=== PATIENT | male | born 1955 | race Caucasian/White ===

== ENCOUNTER 2019-11-29 10:09 | Emergency (ER) | payer OTHER, MEDICAID ==
[~2019-11-29] VITALS: Ht 182.8 cm; Wt 77.1 kg
[~2019-11-29 10:09] MED LIST: ACTOS15 MG PO; AMARYL1 M1 PO; CIPRO500 MG PO; CYCLOBENZAPRINE10 MG PO; DAYPRO600 M1 PO; Diabeta,Micron2.5 MG PO; FLEXERIL10 MG PO; FLOMAX0.4 MG PO; GLUCOPHAGE1000 MG; GLUCOPHAGE1000 MG PO; HYDROCODONE BIT1 T11 PO; JANUVIA; KEFLEX500 MG PO; LISINOPRIL2.5 MG PO; Motrin,Rufen800 MG PO; NEXIUM20 MG PO; NEXIUM40 MG PO; PRILOSEC20 MG PO; SKELAXIN800 MG PO; VICO75300 PO; VICODIN 5/500 505 MG PO; VICODIN1 TAB PO; VITAMIN D50000 I3 PO; ZESTRIL,PRINIVI10 MG PO; ZOFRAN ODT8 MG PO
[2019-11-29 11:09] LABS: BASO # 0.1 10*3/uL (0.0-0.1); BASO % 0.7 % (0.0-1.0); EOS # 0.1 10*3/uL (0.0-0.4); HEMATOCRIT 43.9 % (42.0-52.0); LYMPH # 1.8 10*3/uL (1.3-4.4); LYMPH % 21.1 % (27.0-41.0); MEAN CORPUSCULAR HGB 33.7 pg (27.0-31.0); MEAN CORPUSCULAR HGB CONC 34.4 g/dl (33.0-37.0); MEAN PLATELET VOLUME 10.2 fl (9.6-12.3); MONO # 0.8 10*3/uL (0.1-1.0); MONO % 9.4 % (3.0-9.0); NEUT # 5.6 10*3/uL (2.3-7.9); NEUT % 67.7 % (47.0-73.0); PLATELET COUNT AUTOMATED 205 10*3/uL (130-400); RED BLOOD COUNT 4.48 10*6/uL (4.50-5.90); RED CELL DISTRI WIDTH 11.4 % (0-14.5); WHITE BLOOD COUNT 8.3 10*3/uL (4.8-10.8)
[2019-11-29 11:25] LABS: ALBUMIN 4.1 gm/dl (3.1-4.5); ALKALINE PHOSPHATASE 100 U/L (45-117); BUN 11 mg/dl (7-24); CHLORIDE 103 mmol/L (98-107); CREATININE 0.82 mg/dL (0.70-1.30); LIPASE 206 U/L (73-393); POTASSIUM 3.9 mmol/L (3.5-5.1); SGOT/AST 18 IU/L (3-35); SGPT/ALT 30 U/L (12-78); SODIUM 136 mmol/L (136-145); TOTAL PROTEIN 7.4 gm/dL (6.4-8.2)
[2019-11-29 11:29] LABS: BILIRUBIN NEGATIVE (NEGATIVE); BLOOD TRACE-INTACT (NEGATIVE); CLARITY CLEAR (CLEAR); COLOR STRAW (YELLOW); GLUCOSE 1+ (NEGATIVE); KETONE NEGATIVE (NEGATIVE); SPECIFIC GRAVITY 1.005 (1.005-1.030)
[2019-11-29 11:30] LABS: LEUKO ESTERASE NEGATIVE (NEGATIVE); NITRITE NEGATIVE (NEGATIVE); UROBILINOGEN 0.2 E.U./dl (0.2-1.0)
== END 2019-11-29 13:42 | disposition home or self-care (01) ==
LOC: ED 10:09
PROVIDERS: Nurse Practitioner Family
DX: R10.13 Epigastric pain (principal); R19.7 Diarrhea, unspecified; K59.00 Constipation, unspecified; Z79.899 Other long term (current) drug therapy; Z87.891 Personal history of nicotine dependence

== ENCOUNTER → 2019-12-02 | Outpatient (CLI) | payer OTHER, MEDICAID | END | disposition home or self-care (01) | LOC: RAD 08:05 | DX: R07.81 Pleurodynia (principal) ==

== ENCOUNTER → 2020-01-13 | Outpatient (CLI) | payer OTHER ==
[~2020-01-13] MED LIST changes: +GLUCOPHAGE500 M1 PO; +PRILOSEC20 M1 PO
== END | disposition home or self-care (01) ==
LOC: COVID19 01-01 11:00
PROVIDERS: ATTEND Surgery
DX: Z01.818 Encounter for other preprocedural examination (principal); Z11.59 Encounter for screening for other viral diseases

== ENCOUNTER → 2020-01-18 | Day surgery (SDC) | payer OTHER, MEDICAID ==
[~2020-01-18] VITALS: Ht 182.8 cm; Wt 81.6 kg
[2020-01-18 07:11] VITALS: BP 125/70
[2020-01-18 07:58] VITALS: BP 109/65
[2020-01-18 08:13] VITALS: BP 113/66
[2020-01-18 08:28] VITALS: BP 112/67
== END | disposition home or self-care (01) ==
LOC: SDC 01-04 11:00
PROVIDERS: ATTEND Surgery
DX: Z12.11 Encounter for screening for malignant neoplasm of colon (principal); D12.3 Benign neoplasm of transverse colon; I10 Essential (primary) hypertension; E11.9 Type 2 diabetes mellitus without complications; K21.9 Gastro-esophageal reflux disease without esophagitis; Z79.84 Long term (current) use of oral hypoglycemic drugs; Z87.891 Personal history of nicotine dependence; Z98.890 Other specified postprocedural states; Z79.899 Other long term (current) drug therapy

== ENCOUNTER → 2020-02-17 | Outpatient (CLI) | payer OTHER | END | disposition home or self-care (01) | LOC: COVID19 01:14 | PROVIDERS: ATTEND Surgery | DX: Z01.818 Encounter for other preprocedural examination (principal); Z20.828 Contact with and (suspected) exposure to other viral communicable diseases ==

== ENCOUNTER 2023-07-08 14:13 | Emergency (ER) | payer OTHER ==
[~2023-07-08] VITALS: Ht 182.8 cm; Wt 79.4 kg
[2023-07-08 16:03] LABS: BASO # 0.1 10*3/uL (0.0-0.1); BASO % 0.4 % (0.0-1.0); EOS # 0.1 10*3/uL (0.0-0.4); EOS % 0.7 % (1.0-4.0); HEMATOCRIT 42.7 % (42.0-52.0); LYMPH # 1.9 10*3/uL (1.3-4.4); LYMPH % 12.4 % (27.0-41.0); MEAN CELL VOLUME 99.3 fl (80.0-94.0); MEAN CORPUSCULAR HGB CONC 34.2 g/dl (33.0-37.0); MONO # 1.1 10*3/uL (0.1-1.0); NEUT # 11.9 10*3/uL (2.3-7.9); NEUT % 79.2 % (47.0-73.0); PLATELET COUNT AUTOMATED 246 10*3/uL (130-400); RED CELL DISTRI WIDTH 11.8 % (0-14.5); WHITE BLOOD COUNT 15.1 10*3/uL (4.8-10.8)
[2023-07-08 16:15] LABS: ACT PARTIAL THROMBO TIME 27.8 SECONDS (20.0-32.1)
[2023-07-08] MEDS ORDERED: IOHEXOL 300 MG/ML 100 ML VIAL IV ONE (16:15)
[2023-07-08 16:21] LABS: ALKALINE PHOSPHATASE 108 U/L (46-116); BUN 7 mg/dl (9-23); CHLORIDE 103 mmol/L (98-107); POTASSIUM 3.8 mmol/L (3.4-5.1); SGPT/ALT 20 U/L (5-49)
[2023-07-08] MEDS ORDERED: VIBRAMYCIN100 MG PO (17:47)
[2023-07-08] MEDS ORDERED: Doxycycline Hyclate 100 MG CAP PO ONE (18:45)
== END 2023-07-08 19:02 | disposition home or self-care (01) ==
LOC: ED 14:13
PROVIDERS: Nurse Practitioner Family
DX: K61.1 Rectal abscess (principal); K21.9 Gastro-esophageal reflux disease without esophagitis; E11.9 Type 2 diabetes mellitus without complications; I10 Essential (primary) hypertension; R10.2 Pelvic and perineal pain; Z98.890 Other specified postprocedural states; Z90.49 Acquired absence of other specified parts of digestive tract; Z90.89 Acquired absence of other organs; F17.200 Nicotine dependence, unspecified, uncomplicated; F12.90 Cannabis use, unspecified, uncomplicated

== ENCOUNTER 2023-11-10 13:42 | Emergency (ER) | payer OTHER ==
[~2023-11-10] VITALS: Ht 172.7 cm; Wt 68.0 kg
[~2023-11-10 13:42] MED LIST changes: +VIBRAMYCIN100 MG PO
[2023-11-10] MEDS ORDERED: SODIUM CHLORIDE 0.9% 1,000 ML IV ONE (14:20)
[2023-11-10 14:32] LABS: BASO # 0.1 10*3/uL (0.0-0.1); BASO % 0.7 % (0.0-1.0); EOS # 0.1 10*3/uL (0.0-0.4); EOS % 1.1 % (1.0-4.0); HEMATOCRIT 43.8 % (42.0-52.0); LYMPH # 1.7 10*3/uL (1.3-4.4); LYMPH % 19.4 % (27.0-41.0); MEAN CELL VOLUME 98.9 fl (80.0-94.0); MEAN CORPUSCULAR HGB 34.1 pg (27.0-31.0); MEAN CORPUSCULAR HGB CONC 34.5 g/dl (33.0-37.0); MEAN PLATELET VOLUME 9.9 fl (9.6-12.3); MONO # 0.8 10*3/uL (0.1-1.0); MONO % 8.6 % (3.0-9.0); NEUT # 6.3 10*3/uL (2.3-7.9); NEUT % 69.9 % (47.0-73.0); PLATELET COUNT AUTOMATED 224 10*3/uL (130-400); RED BLOOD COUNT 4.43 10*6/uL (4.50-5.90); RED CELL DISTRI WIDTH 11.5 % (0-14.5)
[2023-11-10 15:06] LABS: ALKALINE PHOSPHATASE 101 U/L (46-116); BUN 9 mg/dl (9-23); CHLORIDE 104 mmol/L (98-107); LIPASE 54 U/L (12-53); POTASSIUM 3.7 mmol/L (3.4-5.1); SGPT/ALT 16 U/L (5-49); TOTAL PROTEIN 7.5 gm/dL (6.0-8.0)
[2023-11-10] MEDS ORDERED: CIPRO500 MG PO (15:16)
[2023-11-10] MEDS ORDERED: IMODIUM A-D2 M2 PO (15:16)
[2023-11-10] MEDS ORDERED: Ciprofloxacin Hydrochloride 500 MG TAB PO ONE (15:20)
== END 2023-11-10 15:19 | disposition home or self-care (01) ==
LOC: ED 13:42
PROVIDERS: Physician Assistant Medical
DX: K52.9 Noninfective gastroenteritis and colitis, unspecified (principal); E11.9 Type 2 diabetes mellitus without complications; K21.9 Gastro-esophageal reflux disease without esophagitis; I10 Essential (primary) hypertension; Z90.49 Acquired absence of other specified parts of digestive tract; Z90.89 Acquired absence of other organs; F12.90 Cannabis use, unspecified, uncomplicated; F17.200 Nicotine dependence, unspecified, uncomplicated

== ENCOUNTER 2024-07-22 09:30 | Emergency (ER) | payer OTHER ==
[~2024-07-22] VITALS: Ht 182.8 cm; Wt 81.6 kg
[~2024-07-22 09:30] MED LIST changes: +IMODIUM A-D2 M2 PO
[2024-07-22] MEDS ORDERED: OMEPRAZOLE40 MG PO (09:38)
[2024-07-22] MEDS ORDERED: METFORMIN HYD1000 MG PO (09:38)
[2024-07-22] MEDS ORDERED: MAGNESIUM CITRATE 296 ML BOT PO ONE (11:00)
== END 2024-07-22 10:44 | disposition home or self-care (01) ==
LOC: ED 09:30
DX: K59.00 Constipation, unspecified (principal); E11.9 Type 2 diabetes mellitus without complications; K21.9 Gastro-esophageal reflux disease without esophagitis; I10 Essential (primary) hypertension; E78.5 Hyperlipidemia, unspecified; F17.200 Nicotine dependence, unspecified, uncomplicated; F12.90 Cannabis use, unspecified, uncomplicated; Z79.899 Other long term (current) drug therapy; Z90.49 Acquired absence of other specified parts of digestive tract; Z90.89 Acquired absence of other organs

== ENCOUNTER → 2024-08-10 | Outpatient (CLI) | payer OTHER ==
[~2024-08-10] MED LIST changes: +METFORMIN HYD1000 MG PO; +OMEPRAZOLE40 MG PO
== END | disposition home or self-care (01) ==
LOC: RAD 11:06
PROVIDERS: ATTEND Internal Medicine
DX: M47.816 Spondylosis without myelopathy or radiculopathy, lumbar region (principal); M53.3 Sacrococcygeal disorders, not elsewhere classified